=== PATIENT | male | born 1975 | race Caucasian/White ===

== ENCOUNTER 2019-03-13 23:45 | Observation (INO) | payer BC, SELFPAY ==
[2019-03-13 23:45] VITALS: BP 125/70; PULSE 81; RESP 24; O2SAT 100
--- NOTE | 2019-03-13 23:45 | W.ED.GENAD ---
Discharge Plan Disposition Patient Disposition: [facility] INPATIENT Condition: Stable Discharge Details Chief Complaint: Abd Prob Clinical Impression: Urolithiasis Primary Care Provider: Cass Lorenzo ED Provider: Leobardo Dexter Medical Decision Making This is a pleasant 43-year-old male with a past medical history of previous kidney stones who presents today for evaluation of right-sided flank pain. Symptoms have been present for the last 9 days, they have been mild to moderate with some achiness, the patient has had some mild vomiting and diarrhea, however over the last 5 hours the pain is become severely worse acutely, he has had associated hematuria. He states that this feels similar but much worse than his normal kidney stones. He denies any fever or chills. Physical exam demonstrates notable right-sided CVA flank and right lower quadrant abdominal tenderness. Normal cremasteric reflex, no significant testicular tenderness. No evidence of testicular torsion. Signs and symptoms are concerning for urolithiasis, however the history is atypical, and appendicitis is certainly on the differential as well the less likely. We will get a CT scan of the abdomen and pelvis for further assessment, treat his pain, rehydrate and reassess. [address] scan results have returned, and demonstrate evidence of a 3 mm calcification within the proximal right ureter with sequelae of obstructive uropathy. Laboratory work-up is relatively benign, no evidence of significant leukocytosis, renal function stable, urinalysis shows no evidence of significant UTI. Patient is given Toradol, repeat doses of Dilaudid, and pain is improved, but not controlled. We discussed discharge home versus observation for pain control, at this time the patient and his do not feel comfortable with going home with his pain. We will admit for continued pain management, IV hydration, and expectant discharge. He does have an established relationship with Dr. Medel already. I discussed the case with Dr. Miranda, he agrees with the assessment and plan. He has asked that I place admission orders and this will be placed. I have extensively reviewed the treatment plan with the patient. I have addressed all patient concerns at this time. I have also discussed the plan with the admitting physician and they agree with the current assessment and plan and have agreed to assume responsibility for the patient. All parties demonstrate verbal understanding and agreement with our assessment and plan at this time. FINDINGS: Lungs: Subpleural groundglass opacities in the bilateral posterior lung bases consistent with mild basilar atalectasis. Liver: Unremarkable. No mass. Gallbladder and bile ducts: Unremarkable. No calcified stones. No ductal dilation. Pancreas: Unremarkable. No ductal dilation. Spleen: Unremarkable. No splenomegaly. Adrenals: Unremarkable. No mass. Kidneys and ureters: There is a 0.8 cm hypodensity within the left kidney, too small to characterize, statistically most likely cyst. No imaging followup indicated. There is asymmetric enlargement of the right kidney with delayed nephrogram and perinephric stranding as well as mild right hydroureteronephrosis. There is punctate 3 mm calcification within the proximal right ureter, just distal to the UPJ. No left hydronephrosis, left ureter normal in course and caliber. Stomach and bowel: Unremarkable. No obstruction. No mucosal thickening. Appendix: Within normal limits. Intraperitoneal space: No free air. No significant fluid collection. Vasculature: Within normal limits. No abdominal aortic aneurysm. Lymph nodes: Few prominent mesenteric lymph nodes in the right upper quadrant, likely reactive. Otherwise no mesenteric or retroperitoneal adenopathy. Bladder: Unremarkable as visualized. Reproductive: Unremarkable as visualized. Bones/joints: Unremarkable. No acute fracture. Soft tissues: No focal abnormality. IMPRESSION: 1. 3 mm calcification within the proximal right ureter with sequela of obstructive uropathy as discussed. 2. Normal appendix. Dictated and Authenticated by: Trell Martinez MD. Ordering:COREEN Booth MD HPI General Date/Time Provider Initiated Documentation: 03/13/19 23:45. HPI Narrative: This is a pleasant 43-year-old male with a past medical history of kidney stones who presents today for evaluation of right-sided abdominal pain. Patient has had mild pain for the last 9 days primarily in the right flank, however over the last 5 hours it has become notably severe. He has had associated hematuria. Pain goes from his right flank all the way down to his right groin. He denies any chest pain fever or chills, but does admit to mild vomiting and diarrhea. He does have a history of kidney stones and states that this feels similar but significantly worse than before. He denies any aggravating or relieving factors. He denies any other complaints at this time. Related Data Allergies Allergy/AdvReac Type Severity Reaction Status Date / Time hay fever Allergy Mild Itching Uncoded 03/13/19 23:51 Review of Systems Review of Systems ROS Unobtainable: All systems reviewed & are unremarkable except as noted in HPI and below PFSH Social History Smoking/Tobacco Use Status: Never Drug use: Never Do you feel safe at home: Yes Do you feel safe in your relationship?: Yes Exam Narrative Exam Narrative: 1.Const: Well-nourished, Well-developed, appearing stated age 2.Eyes: PERRL, no conjunctival injection, and symmetrical lids. 3.ENT: Atraumatic external nose and ears. Moist MM. Neck: Symmetric, trachea midline, No thyromegaly. 4.CVS: +S1/S2, No murmurs or gallops. Peripheral pulses 2+ and equal in all extremities. Brisk capillary refill in all extremities. 5.RESP: Unlabored respiratory effort. Clear to auscultation bilaterally. No wheezes rales or rhonchi 6.GI: Soft, Nondistended, No hepatosplenomegaly. Mild to moderate right-sided flank and abdominal tenderness. Pain is present at McBurney's point. Negative Pratt sign. Mild to moderate CVA tenderness. Suprapubic tenderness is also present. exam demonstrates a circumcised penis, normal cremasteric reflex bilaterally. Minimal achiness over the right testicle, no masses. Negative obturator and psoas sign, negative heel strike test. 7.MSK: Normocephalic/Atraumatic, Extremities w/o deformity or ttp No cyanosis or clubbing, Normal movement of all extremities 8.Skin: Warm, Dry. No rashes or lesions. 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 Sensation grossly intact, no focal neurologic deficits. 10.Psych: (AAO) x3. Appropriate mood and affect
[2019-03-13 23:49] VITALS: BP 135/80; PULSE 76; RESP 24; TEMP 36.6; O2SAT 100
--- NOTE | 2019-03-13 23:49 | DI.CT_ITS ---
EXAM: CT ABDOMEN PELVIS W CLINICAL HISTORY: severe RLQ pain, hx kid stone. TECHNIQUE: Imaging Protocol: Axial computed tomography images with coronal and sagittal reformatted images were created and reviewed CONTRAST MATERIAL: Intravenous: Omnipaque 350 Contrast volume:100 mL contrast route:IV - Oral: No COMPARISON: ABD PELVIS WITH CONTRAST from 11/24/2014 FINDINGS: ABDOMEN: Lung Bases: Dependent atelectatic changes are seen in the lung bases bilaterally. Liver: Normal density. No measurable mass. The portal, superior mesenteric, and splenic veins are pat ent. Gallbladder and biliary tract: No radiodense calculus or dilation. Pancreas: Normal density, no abnormal calcifications or inflammatory process. Spleen: Normal. Kidneys: Normal size, contour and axis. There is a 3 mm stone at the right ureteropelvic junction cau sing mild right hydronephrosis. There is a 2 mm nonobstructing stone in the upper pole of the right kidney. There is a stable cyst on the left kidney. No masses seen. Adrenal glands: No masses seen. Abdominal Aorta: Abdominal portion non-dilated. No significant abdominal or pelvic adenopathy is pres ent. PELVIS: Bladder: Symmetric distention, no gross wall thickening. The reproductive organs are unremarkable as visualized. Bowel: No obstruction or bowel wall thickening. A normal appendix is present in the right lower quadr ant. Peritoneal cavity: No ascites, collection or mesenteric inflammatory response. Bones: Within normal limits. Impression: 3 mm calcification in the proximal right ureter causing mild hydronephrosis. DATA REPOSITORY: All CT scans at this facility are submitted to the National Radiology Data Registry (NRDR) Dose Index Registry (DIR) with the [employer] (A[employer]). RADIATION OPTIMIZATION: All CT scans at this facility use at least one of these dose optimization te chniques: automated exposure control; mA and/or kV adjustment per patient size (includes targeted exa ms where dose is matched to clinical indication); or iterative reconstruction.
[2019-03-13 23:58] LABS: Lactate 1.6 mmol/L (0.6-1.4)
[2019-03-13] MEDS: Normal Saline 1,000 ML 1000 ML IV (23:58)
[2019-03-14] VITALS (16 sets, daily range): BP systolic 116–152; BP diastolic 65–86; PULSE 71–84; RESP 16–20; TEMP 36.2; O2SAT 90–99
[2019-03-14 00:01] LABS: Absolute Basophil Count 0.02 k/cumm (0.0-0.2); Absolute Eosinophil Count 0.31 k/cumm (0.0-0.7); Absolute Lymphocyte Count 2.01 k/cumm (1.2-3.4); Absolute Monocyte Count 0.47 k/cumm (0.11-0.7); Absolute Neutrophil Count 3.92 k/cumm (1.2-6.7); Basophils % 0.3; Eosinophils % 4.6; HCT 37.1 % (40.0-50.0); Lymphocytes % 29.9; Mean Corpuscular Hemoglobin 31.8 pg (27.0-33.0); Mean Corpuscular Volume 90.7 fL (80-95); Mean Platelet Volume 8.9 fL (8.0-11.0); Neutrophils % 58.2; Platelet Count 257 x1000/uL (130-400); RBC 4.09 m/cumm (4.50-6.00); RBC Distribution Width 12.5 % (11.8-14.1); White Blood Cell Count 6.73 k/cumm (4.4-10.8)
[2019-03-14] MEDS: HYDROmorphone 2 MG/ML VIAL 1 MG IVP ×3 (00:02→02:35)
[2019-03-14] MEDS: Ondansetron 4 MG/2 ML VIAL IVP (00:02)
[2019-03-14] MEDS: Ketorolac 30 MG/ML VIAL IVP (00:03)
[2019-03-14 00:13] LABS: ALT 24 U/L (16-63); AST 17 U/L (15-37); Albumin 4.3 g/dL (3.4-5.0); Alkaline Phosphatase 96 U/L (46-116); Anion Gap 12.1 mmol/L (3-11); BUN 18 mg/dL (7-18); Bilirubin, Total 0.8 mg/dL (0.2-1.0); CO2 23.9 mmol/L (21.0-32.0); CREATININE 1.33 mg/dL (0.70-1.30); Calcium 8.6 mg/dL (8.5-10.1); Chloride 104 mmol/L (98-107); Estimated GFR 58.96 (mL/min/1.73m2); Glucose 111 mg/dL (70-100); Potassium 3.7 mmol/L (3.5-5.1); Sodium 140 mmol/L (136-145); Total Protein 7.1 g/dL (6.4-8.2)
[2019-03-14 00:14] LABS: PTT Activated 23.6 sec (21.0-31.4); Prothrombin Time 10.1 sec (9.3-11.0)
[2019-03-14] MEDS: Omnipaque 350 MG/ML 100 ML BTL IJ (00:50)
--- NOTE | 2019-03-14 01:02 | DI.VRAD_ITS ---
PROCEDURE INFORMATION: Exam: CT Abdomen and Pelvis With Contrast Exam date and time: 03/13/2019 12:14 AM Clinical history: 43 years old, male; Abdominal pain; Localized; Right lower quadrant (rlq); Patient HX: Severe rlq pain, HX kidney stones TECHNIQUE: Imaging protocol: Computed tomography of the abdomen and pelvis with intravenous contrast. COMPARISON: CT ABD PELVIS WITH CONTRAST 11/24/2014 2:49 AM FINDINGS: Lungs: Subpleural groundglass opacities in the bilateral posterior lung bases consistent with mild basilar atalectasis. Liver: Unremarkable. No mass. Gallbladder and bile ducts: Unremarkable. No calcified stones. No ductal dilation. Pancreas: Unremarkable. No ductal dilation. Spleen: Unremarkable. No splenomegaly. Adrenals: Unremarkable. No mass. Kidneys and ureters: There is a 0.8 cm hypodensity within the left kidney, too small to characterize, statistically most likely cyst. No imaging followup indicated. There is asymmetric enlargement of the right kidney with delayed nephrogram and perinephric stranding as well as mild right hydroureteronephrosis. There is punctate 3 mm calcification within the proximal right ureter, just distal to the UPJ. No left hydronephrosis, left ureter normal in course and caliber. Stomach and bowel: Unremarkable. No obstruction. No mucosal thickening. Appendix: Within normal limits. Intraperitoneal space: No free air. No significant fluid collection. Vasculature: Within normal limits. No abdominal aortic aneurysm. Lymph nodes: Few prominent mesenteric lymph nodes in the right upper quadrant, likely reactive. Otherwise no mesenteric or retroperitoneal adenopathy. Bladder: Unremarkable as visualized. Reproductive: Unremarkable as visualized. Bones/joints: Unremarkable. No acute fracture. Soft tissues: No focal abnormality. IMPRESSION: 1. 3 mm calcification within the proximal right ureter with sequela of obstructive uropathy as discussed. 2. Normal appendix. Dictated and Authenticated by: Trell Martinez MD. Ordering:COREEN Booth MD
[2019-03-14 01:07] LABS: Bilirubin Negative (Negative); Blood Large (Negative); Clarity Cloudy (Clear); Glucose Negative (Negative); Ketones Trace mg/dL (Negative); Leukocyte Esterase Negative (Negative); Nitrite Negative (Negative); Specific Gravity 1.015 (1.005-1.025); Urobilinogen 0.2 EU/dL (Up TO 0.2)
[2019-03-14 01:15] LABS: RBC >50 (0-2); WBC 0-2 HPF (0-5)
[2019-03-14 01:16] LABS: Bacteria Few HPF (Negative); C & S Indicated? No; Casts Negative LPF (Negative); Crystals Negative HPF (Negative); Epithelial Cells Few HPF (Negative); Mucus Negative (Negative)
[2019-03-14] MEDS: MORPHine 2 MG/ML SYR IVP (02:23)
[2019-03-14] MEDS: Normal Saline 1,000 ML 150 ML IV ×2 (02:25→07:40)
--- NOTE | 2019-03-14 02:41 | NUR.NOTE ---
Nursing Note:post medication administration o2 sat decreased to 88%, coygen started at 1l with saturation increasing to 97%.
--- NOTE | 2019-03-14 03:54 | HPE_ITS ---
Date of service: 03/14/19 Time of Service: 03:55 Assessment and Plan Assessment and plan (1) Kidney stone on right side: Status: Acute Assessment and plan: Right-sided kidney stone on CT scan with mild hydronephrosis, no fever. Pain still significant requiring parenteral opiates. No vomiting thus far. From a diagnostic standpoint monitor temperature curve and if fever develops he will need stenting. From a therapeutic standpoint continue IV hydration and parenteral medications. Hopefully the stone will pass spontaneously. Its proximal location reduces the chances somewhat. Size of the stone suggest expulsive therapy with tamsulosin not needed at this time. History of Present Illness History of Present Illness Chief Complaint: Colicky right-sided flank pain Narrative: 43-year-old generally healthy man with a history of urolithiasis in the past (requiring lithotripsy) presented to the emergency room with a dramatic increase in pain in the right flank area with some radiation towards the groin. For the past 9 days he has been dealing with left flank pain radiating into the left testicle. This is a familiar symptom for him having had kidney stones in the past including a stone that required lithotripsy (living in [place] at the time). He was unsure if this was due to a muscle strain from his weekly soccer participation or another kidney stone. The left flank pain passed spontaneously less than 24 hours ago when he noted some blood in his stool and there was sudden relief of pain. However, he then became aware of some right flank pain and was using ibuprofen or acetaminophen to try to manage the pain. Yesterday late afternoon the pain became much worse and he presented to the emergency room after trying to manage the pain at home for 5 to 6 hours. He had some nausea but no vomiting. He had a little bit of blood in his urine right before the left flank pain resolved but has not had gross hematuria since. No trouble with constipation. No fever or chills. He was not febrile on presentation. He had hematuria on microscopic exam in the ER and a renal colic CT showed mild hydronephrosis on the right with a 3 mm proximal ureteral stone, no obstruction or stone seen on the left. He required repeated doses of opiates for pain m anagement. He had better pain relief with morphine that he did with hydromorphone. He is being admitted for symptom control and hoped for spontaneous passage of the stone. He has a past history of multiple kidney stones. He had lithotripsy while he was living in [place]. He reports having had a 24-hour urine collection and apparently the results did not indicate the need for any ongoing medical treatment or dietary changes for stone prevention other than maintaining good hydration. There is no family history of recurrent kidney stones. His past medical history is also notable for vasectomy without consequence and arthroscopic surgery of his left knee. He otherwise enjoys good health and does not take any medications on a regular basis. Review of Systems Review of Systems ROS Unobtainable: All systems reviewed & are unremarkable except as noted in HPI and below PFSH Medical History (Updated 03/14/19 @ 03:58 by Newton Miranda MD) Hx of nephrolithotomy with removal of calculi (Acute) Surgical History (Updated 03/14/19 @ 04:11 by Newton Miranda MD) Hx of vasectomy (Acute) S/P arthroscopic surgery of left knee (Acute) Social History Smoking/Tobacco Use Status: Never Drug use: Never Do you feel safe at home: Yes Do you feel safe in your relationship?: Yes Meds Home Medications and Allergies Allergies Allergy/AdvReac Type Severity Reaction Status Date / Time hay fever Allergy Mild Itching Uncoded 03/13/19 23:51 Exam Narrative Exam Narrative: Presently comfortable after receiving 6 mg of morphine. Temperature 36.2 blood pressure 116/65 pulse rate in the 70s SaO2 97% on room air. Sclera clear. Pupils equal and reactive, extraocular movements are normal. No facial asymmetry. Pharynx clear. No JVD or cervical out not the. Lungs are clear. He has some mild tenderness to percussion on the right lower CVA area, not tender on the left. Regular heart rhythm without murmur S3 or S4. Abdomen muscular abdominal wall with normal to slightly decreased bowel sounds. No tenderness to palpation in the upper or lower quadrants of the abdomen. Negative psoas signs bilaterally. Good pulses in the feet. He has symmetric movement of all extremities. Sits up unassisted. Oriented x4. Results CT scan abdomen and pelvis with contrast showing delayed nephrogram on the right, mild right hydroureteronephrosis and a 3 mm calcification in the proximal right ureter just distal to the UPJ. Labs Result diagrams: 03/13/19 23:53 03/13/19 23:53 Labs: Laboratory Results - last 24 hr 03/13/19 03/13/19 03/13/19 23:53 23:53 23:53 WBC 6.73 RBC 4.09 L Hgb 13.0 L Hct 37.1 L MCV 90.7 MCH 31.8 MCHC 35.0 RDW 12.5 Plt Count 257 MPV 8.9 Immature Gran % 0.0 Neutrophils % 58.2 Lymphocytes % 29.9 Monocytes % 7.0 Eosinophils % 4.6 Basophils % 0.3 Absolute Neutrophils 3.92 Absolute Lymphocytes 2.01 Absolute Monocytes 0.47 Absolute Eosinophils 0.31 Absolute Basophils 0.02 PT INR APTT Sodium 140 Potassium 3.7 Chloride 104 Carbon Dioxide 23.9 Anion Gap 12.1 H BUN 18 Creatinine 1.33 H Estimated GFR/1.73 m2 58.96 Glucose 111 H Lactate 1.6 H Calcium 8.6 Total Bilirubin 0.8 AST 17 ALT 24 Alkaline Phosphatase 96 Total Protein 7.1 Albumin 4.3 Urine Color Urine Clarity Urine pH Ur Specific [place] Urine Protein Urine Ketones Urine Blood Urine Nitrite Urine Bilirubin Urine Urobilinogen Ur Leukocyte Esterase Urine RBC Urine WBC Ur Epithelial Cells Urine Crystals Urine Bacteria Urine Casts Urine Mucus Ur Culture Indicated? Urine Glucose 03/13/19 03/14/19 23:53 00:50 WBC RBC Hgb Hct MCV MCH MCHC RDW Plt Count MPV Immature Gran % Neutrophils % Lymphocytes % Monocytes % Eosinophils % Basophils % Absolute Neutrophils Absolute Lymphocytes Absolute Monocytes Absolute Eosinophils Absolute Basophils PT 10.1 INR 1.0 APTT 23.6 Sodium Potassium Chloride Carbon Dioxide Anion Gap BUN Creatinine Estimated GFR/1.73 m2 Glucose Lactate Calcium Total Bilirubin AST ALT Alkaline Phosphatase Total Protein Albumin Urine Color Yellow Urine Clarity Cloudy Urine pH 6.0 Ur Specific [place] 1.015 Urine Protein 30 H Urine Ketones Trace H Urine Blood Large H Urine Nitrite Negative Urine Bilirubin Negative Urine Urobilinogen 0.2 Ur Leukocyte Esterase Negative Urine RBC >50 H Urine WBC 0-2 Ur Epithelial Cells Few Urine Crystals Negative Urine Bacteria Few Urine Casts Negative Urine Mucus Negative Ur Culture Indicated? No Urine Glucose Negative Last Vital Signs Temp 36.2 C L 03/14/19 03:08 Pulse 83 03/14/19 03:08 Resp 20 03/14/19 03:08 BP 152/86 H 03/14/19 03:08 Pulse Ox 95 03/14/19 03:08
[2019-03-14] MEDS: MORPHine 10 MG/ML VIAL 6 MG IVP (07:18)
[2019-03-14] MEDS: Normal Saline Flush 10 ML SYR IVP (07:19)
--- NOTE | 2019-03-14 07:42 | PHARADMIT ---
Admission Pharmacy Clinical Review UROLITHIASIS Code Status Full Code Current Weight Wgt-86.2 kg Renally Cleared and Narrow Therapeutic Index Meds CrCl~74 mL/min Meds-OK QTc Value / Action Taken NA BP Control, Fever BP-116/65 Tmax- 36.6C Electrolytes reviewed Na-140 K+3.7 DVT Prophylaxis none Opiate Usage / Scheduled Bowel Regimen Ordered Yes No (NPO) Plt/SCr for Heparin / Enoxaparin Plts-257 SCr-1.33 INR for Warfarin inr-1.0 H/H stable, WBC/Bands H&H- 13.0/37.1 WBC- 6.73 Antibiotic appropriateness none Cultures and Sensitivities none Surgical ABX d/c within 24 hr NA DM control / Insulin Dosing BG-111 Heart Failure (Check EF%) (AUDELIA's, B-Block, Diuretics) none IV to PO Switch No Home Meds Reviewed Yes Home Meds Not Ordered Ibuprofen, Tramadol Comments
[2019-03-14 07:56] LABS: Anion Gap 8.4 mmol/L (3-11); BUN 18 mg/dL (7-18); CO2 25.6 mmol/L (21.0-32.0); CREATININE 1.36 mg/dL (0.70-1.30); Calcium 8.1 mg/dL (8.5-10.1); Chloride 105 mmol/L (98-107); Estimated GFR 57.47 (mL/min/1.73m2); Glucose 111 mg/dL (70-100); Potassium 4.4 mmol/L (3.5-5.1); Sodium 139 mmol/L (136-145)
[2019-03-14] MEDS: Ibuprofen 600 MG TAB PO (11:07)
--- NOTE | 2019-03-14 11:44 | DSE_ITS ---
Date of service: 03/14/19 Time of Service: 11:44 DS: Diagnosis Discharge Diagnosis (1) Kidney stone on right side: Status: Acute Discharge Plan Disposition Patient Disposition: HOME Condition: Stable Discharge Details Chief Complaint: Abd Prob Clinical Impression: Urolithiasis Reason For Visit: UROLITHIASIS Admit Date/Time: 03/14/19 01:58 Admit Provider: Newton Miranda Attending Provider: Newton Miranda Primary Care Provider: Cass Lorenzo ED Provider: Leobardo Dexter Hospital Course Hospital Course: Chief Complaint: Flank Pain HPI: 43-year-old man with a prior history of multiple kidney stones, admitted from [facility] Emergency Department on 03/14 with a diagnosis of right sided kidney stone. Mr. Hoang has a past Medical History significant for nephrolithiasis, some requiring Lithotripsy. He presented to the ED with reported onset of significant right flank pain with radiation to his groin. He reportedly had left flank pain radiating to his left inguinal region over the prior 10 days, spontaneously resolved a day prior to his admission, then with onset of the right flank pain that intensified significantly prior to his presentation to the ED. The patient was found to be afebrile, without leukocytosis, and baseline of 1.3. Urinalysis was significant for blood, and CT showed evidence of a 3mm proximal right ureteral calculus causing mild hydronephrosis. He was admitted for hydration and pain control. This morning Mr. Hoang resports vast improvement in his pain, with progression from discomfort from right flank to RLQ indicating likely stone advancement. Given the size expect passage without difficulty fairly soon. Patient requesting discharge - he will be prescribed moderate dose Hydrocodone/Acetaminophen, with recommendations for continuation of Ibuprofen short-term and continued hydration. Given the number of prior stones will also recommend Urology follow- up after discharge. Home Meds and New Rx's Prescriptions: New hydrocodone-acetaminophen 7.5-325 mg Tablet 1 tab PO Q4H PRN PRNQty: 20 RF: 0 Discharge Instructions Activity:: No Strenuous Activity Equipment/Supplies:: No Equipment Needed Diet:: As Tolerated Discharge Orders Discharge Orders: Discharge Order (Routine); Ordered 03/14/19 Ordered By: Demarco Dean DS: Summary Status at Discharge Functional status at discharge: independent ambulation Overall status at discharge: patient is back to baseline Mental Status: mental status grossly normal Speech and Movement: speech and movement normal Mood: congruent mood Affect: normal affect Exam Psych Mental Status: mental status grossly normal Speech and Movement: speech and movement normal Mood: congruent mood Affect: normal affect DS: Data Vitals/I&O Vitals and I&O: Vital Signs Temperature 36.2 C L 03/14/19 08:26 Temperature Source Tympanic 03/14/19 08:26 Pulse 71 03/14/19 08:26 Pulse Rhythm Regular 03/14/19 07:20 Respiratory Rate 17 03/14/19 08:26 Respiratory Effort Non-Labored 03/14/19 07:20 Respiratory Depth Normal 03/14/19 07:20 Respiratory Pattern Normal 03/14/19 07:20 Blood Pressure 132/82 03/14/19 08:26 Blood Pressure Position Supine 03/13/19 23:49 Pulse Oximetry 99 03/14/19 08:26 Oxygen Delivery Method Room Air 03/14/19 08:26 Oxygen Flow Rate 0 03/14/19 08:26 Pain Level 7 03/14/19 11:07 Intake & Output 03/13/19 03/13/19 03/14/19 11:59 23:59 11:59 Intake Total 787.5 / 787.5 Output Total 1850 / 1850 Balance -1062.5 / -1062.5 Weight 86.183 kg 86.183 kg Intake: IV 787.5 / 787.5 Output: Urine 1850 / 1850 Other: Urine Color Pale Urine Appearance Clear Urine Odor None Strain Urine Result Negative-No Stones/Gravel Comment no stones present. urine strained. Voiding Methods Urinal Data Completed and Pending Completed studies during hospitalization [Text1]: Exam(s) 03/[address]:CT abdomen & pelvis w EXAM: CT ABDOMEN PELVIS W CLINICAL HISTORY: severe RLQ pain, hx kid stone. COMPARISON: ABD PELVIS WITH CONTRAST from 11/24/2014 FINDINGS: ABDOMEN: Lung Bases: Dependent atelectatic changes are seen in the lung bases bilaterally. Liver: Normal density. No measurable mass. The portal, superior mesenteric, and splenic veins are patent. Gallbladder and biliary tract: No radiodense calculus or dilation. Pancreas: Normal density, no abnormal calcifications or inflammatory process. Spleen: Normal. Kidneys: Normal size, contour and axis. There is a 3 mm stone at the right ureteropelvic junction causing mild right hydronephrosis. There is a 2 mm nonobstructing stone in the upper pole of the right kidney. There is a stable cyst on the left kidney. No masses seen. Adrenal glands: No masses seen. Abdominal Aorta: Abdominal portion non-dilated. No significant abdominal or pelvic adenopathy is present. PELVIS: Bladder: Symmetric distention, no gross wall thickening. The reproductive organs are unremarkable as visualized. Bowel: No obstruction or bowel wall thickening. A normal appendix is present in the right lower quadrant. Peritoneal cavity: No ascites, collection or mesenteric inflammatory response. Bones: Within normal limits. Impression: 3 mm calcification in the proximal right ureter causing mild hydronephrosis. Labs on day of discharge: Labs from last 24 hours 03/14/19 03/14/19 03/13/19 07:40 00:50 23:53 WBC RBC Hgb Hct MCV MCH MCHC RDW Plt Count MPV Immature Gran % Neutrophils % Lymphocytes % Monocytes % Eosinophils % Basophils % Absolute Neutrophils Absolute Lymphocytes Absolute Monocytes Absolute Eosinophils Absolute Basophils PT 10.1 INR 1.0 APTT 23.6 Sodium 139 Potassium 4.4 Chloride 105 Carbon Dioxide 25.6 Anion Gap 8.4 BUN 18 Creatinine 1.36 H Estimated GFR/1.73 m2 57.47 Glucose 111 H Lactate Calcium 8.1 L Total Bilirubin AST ALT Alkaline Phosphatase Total Protein Albumin Urine Color Yellow Urine Clarity Cloudy Urine pH 6.0 Ur Specific [place] 1.015 Urine Protein 30 H Urine Ketones Trace H Urine Blood Large H Urine Nitrite Negative Urine Bilirubin Negative Urine Urobilinogen 0.2 Ur Leukocyte Esterase Negative Urine RBC >50 H Urine WBC 0-2 Ur Epithelial Cells Few Urine Crystals Negative Urine Bacteria Few Urine Casts Negative Urine Mucus Negative Ur Culture Indicated? No Urine Glucose Negative 03/13/19 03/13/19 03/13/19 23:53 23:53 23:53 WBC 6.73 RBC 4.09 L Hgb 13.0 L Hct 37.1 L MCV 90.7 MCH 31.8 MCHC 35.0 RDW 12.5 Plt Count 257 MPV 8.9 Immature Gran % 0.0 Neutrophils % 58.2 Lymphocytes % 29.9 Monocytes % 7.0 Eosinophils % 4.6 Basophils % 0.3 Absolute Neutrophils 3.92 Absolute Lymphocytes 2.01 Absolute Monocytes 0.47 Absolute Eosinophils 0.31 Absolute Basophils 0.02 PT INR APTT Sodium 140 Potassium 3.7 Chloride 104 Carbon Dioxide 23.9 Anion Gap 12.1 H BUN 18 Creatinine 1.33 H Estimated GFR/1.73 m2 58.96 Glucose 111 H Lactate 1.6 H Calcium 8.6 Total Bilirubin 0.8 AST 17 ALT 24 Alkaline Phosphatase 96 Total Protein 7.1 Albumin 4.3 Urine Color Urine Clarity Urine pH Ur Specific [place] Urine Protein Urine Ketones Urine Blood Urine Nitrite Urine Bilirubin Urine Urobilinogen Ur Leukocyte Esterase Urine RBC Urine WBC Ur Epithelial Cells Urine Crystals Urine Bacteria Urine Casts Urine Mucus Ur Culture Indicated? Urine Glucose PFSH Medical History Hx of nephrolithotomy with removal of calculi (Acute) Surgical History Hx of vasectomy (Acute) S/P arthroscopic surgery of left knee (Acute) Social History Smoking/Tobacco Use Status: Never Drug use: Never Do you feel safe at home: Yes Do you feel safe in your relationship?: Yes
== END 2019-03-14 13:10 | disposition home or self-care (01) ==
LOC: ER 03-14 02:38 → MS 03-14 02:53
PROVIDERS: Admitting Provider Internal Medicine; Emergency Provider Student in an Organized Health Care Education/Training Program; PCP Nurse Practitioner Family; Visit Provider Internal Medicine
DX: N13.2 Hydronephrosis with renal and ureteral calculous obstruction; Z87.442 Personal history of urinary calculi
CPT/HCPCS: 36415; 80048; 80053; 96361; 96374; 96375; 96376; 99217; 99219; 99285; 74177; 81003; 81015; 83605; 85025; 85610; 85730; 99236; 99284; G0378; J1885; J2270; J2405; J3490

== ENCOUNTER 2019-12-27 12:49 | Outpatient (CLI) | payer BC, SELFPAY ==
[2020-01-02 12:22] LABS: SARS-CoV-2 RNA Undetected (Undetected); SARS-CoV-2 Specimen Source Nasopharynx
== END 2019-12-27 13:09 ==
PROVIDERS: PCP Nurse Practitioner Family; Visit Provider Registered Nurse
DX: Z03.818 Encounter for observation for suspected exposure to other biological agents ruled out (principal)
CPT/HCPCS: U0003

== ENCOUNTER 2020-07-24 20:54 | Outpatient (REF) | payer OTHER, SELFPAY ==
[2020-07-26 14:02] LABS: COVID-19 RT-PCR UVMMC Result Negative (Negative)
== END 2020-07-24 20:55 | disposition home or self-care (01) ==
LOC: NCHCN 20:54
PROVIDERS: PCP Nurse Practitioner Family; Visit Provider Nurse Practitioner Family
DX: J32.9 Chronic sinusitis, unspecified (principal); Z20.822 Contact with and (suspected) exposure to COVID-19
CPT/HCPCS: U0003

== ENCOUNTER 2021-05-31 09:31 | Outpatient (CLI) | payer OTHER, SELFPAY ==
--- NOTE | 2021-05-31 09:15 | DI.RAD_ITS ---
Exam(s) XR STANDING ALIGNMENT EXAM: XR STANDING ALIGNMENT CLINICAL HISTORY: knee pain. TECHNIQUE: 2D digital imaging was performed. COMPARISON: DX XR RIGHT KNEE 3VIEWS from 02/10/2018 DX XR RIGHT KNEE 3VIEWS from 02/10/2018 FINDINGS: There is advanced osteoarthritic degenerative change in both knees. Moderate-advanced narrowing of t he medial and lateral compartments of the left knee noted and lateral compartment of the right knee w ith milder narrowing of the medial compartment of the right knee. A corticated ossified density seen in the soft tissues just medial to the medial femoral condyle of the right knee, possibly from prior MCL injury. Prominent lateral marginal osteophytes seen off the lateral compartment of the right kn ee. Smaller osteophytes on the left side. Both hip joints appear unremarkable. Sacroiliac joints unremarkable. Ankles appear unremarkable. N o osseous lesions. IMPRESSION: Degenerative changes both knees. Hips appear unremarkable. DATA REPOSITORY: RADIATION DOSE DELIVERED:
--- NOTE | 2021-05-31 09:15 | DI.RAD_ITS ---
Exam(s) XR KNEE LT 1V EXAM: XR KNEE LT 1V CLINICAL HISTORY: knee pain. TECHNIQUE: 2D digital imaging was performed. COMPARISON: DX XR RIGHT KNEE 3VIEWS from 02/10/2018 DX XR RIGHT KNEE 3VIEWS from 02/10/2018 FINDINGS: Single lateral of the left knee reveals no obvious fractures but severe tricompartmental osteoarthrit ic degenerative changes. On the lateral view there is a large bony excrescence off the posterosuperi or aspect of the patella, this extending cephalad for distance of 2.8 cm and impinging upon the supra patellar bursa. Similar finding is not seen on the opposite side. IMPRESSION: DATA REPOSITORY: RADIATION DOSE DELIVERED:
--- NOTE | 2021-05-31 09:36 | DI.RAD_ITS ---
Exam(s) XR KNEE RT 1V EXAM: XR KNEE RT 1V CLINICAL HISTORY: knee pain. TECHNIQUE: 2D digital imaging was performed. COMPARISON: DX XR RIGHT KNEE 3VIEWS from 02/10/2018 DX XR RIGHT KNEE 3VIEWS from 02/10/2018 FINDINGS: Single lateral view of the right knee compared to January 2018 Again noted are degenerative changes. On this lateral view there is also significant degenerative ch zeny in the patellofemoral compartment evident, this in addition to the lateral compartment degenerat lawrence changes and less severe medial compartment degenerative changes. There is no prominent joint eff usion evident. IMPRESSION: DATA REPOSITORY: RADIATION DOSE DELIVERED:
== END 2021-05-31 09:32 | disposition home or self-care (01) ==
LOC: DIORS 09:32
PROVIDERS: PCP Registered Nurse; Referring Provider Registered Nurse; Visit Provider Physician Assistant
DX: M25.561 Pain in right knee (principal); M25.562 Pain in left knee; M17.0 Bilateral primary osteoarthritis of knee
CPT/HCPCS: 73560; 77073

== ENCOUNTER 2025-04-18 11:27 | Outpatient (CLI) | payer BC, SELFPAY ==
--- NOTE | 2025-04-18 08:02 | DI.RAD_ITS ---
Exam(s) XR STANDING ALIGNMENT EXAM: XR STANDING ALIGNMENT CLINICAL HISTORY: R TKR Planning. TECHNIQUE: 2D digital imaging was performed. Four images were obtained. COMPARISON: CR XR STANDING ALIGNMENT from 05/31/2021 CR XR KNEE RT 1V from 05/31/2021 CR XR KNEE LT 1V from 05/31/2021 CR XR Knee 3 Views Right from 11/18/2023 FINDINGS: BONES: The hips are well maintained. In the right knee, there are marked degenerative changes characterized by joint space narrowing and osteophytes. The findings are most marked in the lateral femoral tibial joint. In the left knee, there are marked degenerative changes characterized by joint space narrowing and osteophytes. The findings are most marked in the lateral femoral tibial joint. There are large enthesophytes at the superior patella bilaterally. The ankles are well maintained.There is no significant leg length discrepancy. SOFT TISSUE: Normal. IMPRESSION: Marked osteoarthritis of the knees bilaterally. DATA REPOSITORY: RADIATION DOSE DELIVERED:
== END 2025-04-18 11:28 | disposition home or self-care (01) ==
LOC: DIORS 11:27
PROVIDERS: PCP Registered Nurse; Visit Provider Physician Assistant
DX: M17.11 Unilateral primary osteoarthritis, right knee (principal); M17.12 Unilateral primary osteoarthritis, left knee
CPT/HCPCS: 77073

== ENCOUNTER 2025-04-27 06:06 | Day surgery (SDC) | payer BC, SELFPAY ==
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
[2025-04-27] VITALS (29 sets, daily range): BP systolic 103–138; BP diastolic 67–87; PULSE 64–78; RESP 11–23; TEMP 36.3–36.6; O2SAT 97–100; BMI 30.8
[2025-04-27] MEDS: Celecoxib 200 MG CAP 400 MG PO (06:20)
[2025-04-27] MEDS: Acetaminophen 500 MG TAB 1000 MG PO (06:20)
[2025-04-27] MEDS: Gabapentin 300 MG CAP PO (06:20)
[2025-04-27] MEDS: Lactated Ringers 1,000 ML 80 ML IV (06:56)
--- NOTE | 2025-04-27 07:13 | PDOC.DSDIS_ITS ---
Date of service: 04/27/25 Discharge Plan Disposition Patient Disposition: Home Condition: Good Discharge Details Reason For Visit: R TKR Attending Provider: Kartik Suarez Primary Care Provider: Isha Serna Home Meds and New Rx's Prescriptions: New acetaminophen 500 mg tablet 1,000 mg PO TID Qty: 90 3RF aspirin 81 mg tablet,delayed release (DR/EC) 81 mg PO BID Qty: 60 0RF celecoxib 200 mg capsule 200 mg PO BID Qty: 60 0RF dexamethasone 4 mg tablet 4 mg PO DAILY Qty: 2 0RF docusate sodium 100 mg capsule 100 mg PO BID PRNQty: 28 0RF pantoprazole 40 mg tablet,delayed release (DR/EC) 40 mg PO DAILY Qty: 14 0RF gabapentin 300 mg capsule 300 mg PO QHS Qty: 14 0RF oxycodone 5 mg tablet 5 mg PO Q4H PRNQty: 18 0RF Continued mometasone 50 mcg/actuation spray,non-aerosol 2 spray intranasal DAILY Qty: 17 12RF Rx Instructions: administer into each nostril cetirizine 10 mg tablet 10 mg PO DAILY PRN azelastine [Astepro Allergy] 205.5 mcg (0.15 %) spray,non-aerosol 2 spray intranasal BID Rx Instructions: administer into each nostril Discontinued acetaminophen 500 mg capsule 500 mg PO Q6H PRN Discharge Instructions Additional Instructions: Total Knee Discharge Instructions Activity: The most important activity is to walk and to work on gentle motion (both flexion and extension). You should try to take short walks a few times a day. It is important that when resting you work on keeping the knee straight. Avoid putting a pillow behind the knee as this will encourage flexion. Work on range of motion exercises as provided by Physical Therapy. - Start outpatient physical therapy within 2 weeks. - You should wear the VIVEK hose on both legs for 2 weeks. You may remove these at night. You may also use any compression sock in place of the VIVEK hose. - Utilize [employer] to review exercises, see videos on exercises and obtain basic information pertaining to your surgery and your recovery. Dressing: Remove the Eric wrap by 2 days after your surgery and put on the VIVEK stocking given to you from the hospital. Keep the surgical dressing (underneath the ERIC wrap) in place for at least one week. After the first week it may be removed and replaced with light gauze and tape or nothing. The wound and dressing may get wet after 3 days but avoid soaking the dressing or otherwise it will need to be changed. Many people prefer covering the dressing with cling wrap (saran wrap) to minimize it from getting soaked. If it gets wet, just pat dry. If it starts to peel off then it will need to be changed. Medications: - You should take Tylenol and anti-inflammatory Celebrex as your primary pain control medications. If the Celebrex is too expensive or not covered, please call the office for another alternative (Advil/Ibuprofen or Naproxen/Aleve) - You have been prescribed a stronger pain medication Oxycodone for breakthrough pain, take as needed as prescribed. - You have also been prescribed a stomach acid reduction agent Pantoprozole to help reduce stomach acid and reflux. - You have been prescribed Gabapentin to take at night for restlessness and nerve pain. - You will be taking Aspirin 81mg twice a day for DVT prevention unless instructed otherwise. - You have also been prescribed Decadron to take to control post-operative nausea and pain. You will start this tomorrow. - If you have constipation you should take Colace or Miralax (both [id number]). It takes most people 3-4 days to have a bowel movement. Follow-up: 2 weeks If you have any acute concerns or questions, please do not hesitate to contact the office at [phone]. You may contact Dr. Suarez with any questions after hours through the hospital at [phone] or on his cell phone at [phone]. Stand Alone Forms: Anesthesia Discharge Inst., Anes.Nerve Block Instructions, [facility] ([facility]), Portal Information Referrals: Kartik Suarez MD [ [facility] STAFF PHYSICIAN, Orthopaedic Surgical] - 05/09/25 10:45 am Equipment/Supplies: Walker Activity:: Activity as Tolerated Shower/Bathe:: 72 hours Diet:: As Tolerated Discharge Orders Discharge Orders: Discharge Order (Routine); Ordered 04/27/25 Ordered By: Manish Nieves DS: Diagnosis Discharge Diagnosis (1) Degenerative joint disease of right knee: Status: Chronic
[2025-04-27] MEDS: ceFAZolin 2 GM/50 ML BAG IVPB (07:42)
[2025-04-27] MEDS: TRANEXAMIC ACID/SOD. CHL. 1,000 MG/100 ML BAG 600 MG IVPB (07:52)
--- NOTE | 2025-04-27 08:21 | W.ANESNERVE ---
Nerve Block Single Injection Procedure Date and Time Date Performed: 04/27/25 Procedure Start: 07:20 Location Where Procedure Performed Procedure Location: Day Surgery Unit Reason Performed: Postoperative Analgesia Requesting Provider: Kartik Suarez Timeout Performed Timeout Performed: Yes Monitoring Used ECG, Blood Pressure, SpO2 and See EMR for corresponding vital signs Sterility Sterility: Hand Hygiene, Surgical Cap, Surgical Mask, Sterile Gloves and Chlorhexidine Sedation Given During Procedure Sedation Given (Indicate Dose Given): Versed IV Dose:: 2mg Patient Mental Status Patient Mental Status: Sedate with meaningful communication Nerve Block 1st Nerve Block: Laterality: Right Block Type: Adductor Canal Ultrasound Image Saved?: Yes Needle / Catheter Used: 100mm SonoPlex II Local Anesthetic Bolus (Indicate Dose Given): Lidocaine used for local infiltration of skin, Bupivacaine 0.25% Dose:: 8ml and Exparel Dose:: 7ml Additives (Indicate Dose Given): None Ultrasound: Sterile probe cover and gel used Nerve Stimulator: Supplement to Ultrasound use and No twitch or parasthesia noted < 0.5 mA (less than 0.8 mA) Paresthesia: None Procedure Tolerated: No Complications Procedure Outcome: Successful Procedure Comment: Recommend additional sedation in the future Performed By: Coleen Powell Other (not listed above): RENETTA Supervised By: Barry Moreno
[2025-04-27] MEDS: EPINEPHrine 1 MG/ML AMP pres-free (09:30)
[2025-04-27] MEDS: Ketorolac 30 MG/ML VIAL (09:30)
[2025-04-27] MEDS: ROPIvacaine 0.2% 200 MG/100 ML BAG (09:30)
--- NOTE | 2025-04-27 10:03 | W.PM.OP ---
Operative Note Operative Note PRE-OP DIAGNOSIS: Right Knee Hypertrophic Osteoarthritis POST-OP DIAGNOSIS: same PROCEDURE: Right Total Knee Replacement with Intraoperative Navigation SURGEON: Kartik Suarez PAPER COLORER: Kenyon Nieves ANESTHESIA TYPE: Spinal Refer to Anesthesia Record ESTIMATED BLOOD LOSS: 200 PATHOLOGY: none sent TOURNIQUET TIME: 0 COMPLICATIONS: None Patient was transported to: PACU Patient's condition: stable Implants: 1. Depuy Attune Cementless Cruciate Retaining Femoral Component, Size 9 2. Depuy Attune Cementless Fixed Bearing Tibial Component, Size 9 3. Depuy Attune 9x6mm CR/FB Poly 4. Depuy Attune Patellar Component, Size 41 mm Indications: I have seen Danie in clinic for symptoms of RIGHT knee arthritis, confirmed with radiographic findings. Danie has exhausted nonoperative methods and was having significant limitations in daily function and desired better function and less pain. I discussed the technical details of a knee replacement. I explained the risks of the procedure to include, but not limited to, bleeding, infection, pain, stiffness, fracture, damage to nerves and vessels, damage to muscles and tendons, loosening, need for repeat procedure, blood clot and cardiopulmonary demise. Despite these risks, [NAME] elected to proceed. Findings: There was significant signs of arthritis throughout the knee with large impinging bone throughout, particularly posteriorly. Procedure Description: Danie was greeted in the preoperative holding area where the correct side was identified and marked. The consent was reviewed with the patient and signed. The history and physical was updated. All questions were answered. Preoperative mediacations were administered: Acetaminophen 1000mg, Celebrex 400mg, and Gabapentin 300mg. An adductor canal block was then administered by the anesthesia team in the D[facility]. He was taken back to the operating room. A spinal anesthestic was then administered. The patient was placed into the supine position on the operating room table. Posts were placed for positioning during the procedure. All bony prominences were well padded. Prophylactic antibiotics in the form of Cefazolin were administered. 1g of Tranxemic Acid was given intravenously within 30 minutes of incision. The right leg was then prepped with Chloraprep and draped in a standard fashion with impervious stockinette. A second prep with Chloraprep was performed prior to application of Iodine impregnated skin protection. A timeout to confirm correct identity, side and site, procedure, allergies, anesthesia, and medical concerns was performed. With the knee in some flexion, a midline incision was made overlying the knee. Full thickness skin flaps were raised once the extensor mechanism was encountered. These were raised medially and laterally. Any bleeding was controlled with electrocautery. Once the extensor mechanism was fully exposed, a medial parapatellar arthrotomy was performed in a flexed position. All bleeding from the arthrotomy and the geniculate arteries was coagulated. A medial subperiosteal peel was performed with electrocautery to the midcoronal plane. Due to the significant varus deformity the entire medial tibial plateau was exposed. The fat pad was removed while keeping the patellar tendon protected. The anterior distal femur synovium was removed for later visualization. The ACL and PCL were resected and the anterior horn of the lateral meniscus was transected. The knee was then flexed with the patella everted. Large osteophytes from the tibia were removed. Large osteophytes from the femur were removed. Flexion was challenging given the amount of bone spurs present posteriorly. A curved ostium was used to resect posterior osteophytes to allow initial visualization as well as remove osteophytes within the notch. A single starting pin was then placed 1cm anterior to the PCL insertion and the notch in the direction of the femoral head. The OrthoAlign device was applied over the pin. It was oriented to be in line with the epicondylar axis and the trochlear groove. It was then pinned into place. The navigation computer was then turned on and calibrated. The distal femur cut was set at 0.5 degrees valgus and 3.5 degrees flexion. The distal femur cutting guide then was positioned for a 9mm cut. The distal femur was cut with an oscillating saw while protecting the soft tissues. The tibia was then addressed. The OrthoAlign device was placed over the tibial tubercle and medial tibia and secured into position. Once again, OrthoAlign was calibrated and then set for a 2 degree varus cut and 5 degrees of posterior slope. With this locked into position, the cut thickness stylus was used to assess cut thickness. The lateral side, most involved side, was set for a 4mm cut. This was then held in position and pinned into place with 2 additional pins and a cross pin for stability. The medial and lateral collateral ligaments were protected and the cut was performed. With this completed, it was assessed and noted to be of appropriate dimensions. The guide and OrthoAlign was removed. A spacer block was inserted and the knee was brought into extension to ensure enough space was present. . The Orthoalign gap balancing device was then placed in extension. This was used to ensure that the ligaments were properly balanced with up to 2 to 3 mm laxity laterally compared medially. The extension gap was measured as 18mm. The knee was then brought into 90 degrees of flexion and the ligament senior manufacturing test engineer was once again placed. Under the same amount of force the flexion gap was measured. The Attune specific jig was placed and the flexion gap was made to match the extension gap. The femur was then sized as a size 9. The 4-in-1 cutting guide was the placed. An elbert wing was used to confirm appropriate position of the anterior cut to avoid notching. This cutting guide was ensured to be flush on the cut surface and then pinned into place with headed pins. While protecting the soft tissues, quad tendon, and collateral ligaments, the anterior and posterior cuts were performed with a saw. The central two pins were removed and the posterior and anterior chamfers were cut next. The notch-cutting guide was placed. This was pinned to lateralize the femoral component as much as possible while keeping it flush on the cut surface. This was then pinned into position. A saw was used to make the notch cut. The medial and lateral menisci were removed. Further attention was paid to the large amount of remnant posterior osteophytes. These were further resected with a curved osteotome. Then, a trial femoral component was then inserted, impacted down to the cut surfaces, and the lug holes were drilled. A provisional trial tibial component was placed and the knee was brought through range of motion. There was noted to be excellent extension and flexion. There was no significant instability. The patella was tracking without thumbs. A size 6mm polyethylene component provided the best range of motion and stability with less than 2mm gapping with medial and lateral stress and full extension without significant hyperextension. The tibial cut surface was fully exposed. The tibia was then sized as a 9. The tibia had been previously marked during trialing to correspond to the center of the tibial component to help with rotation. The trial was aligned to this kenyon, approximately rotated to the medial 1/3rd of the tibial tubercle. The trial was pinned into place. The tibia was prepared with a reamer and a keel punch and lug holes. The knee was then brought into extension and the patella was measured as 29mm. Using the patellar clamp and cut guide, this was resected to a flat surface with at least 13mm of thickness remaining. The size 41mm patella fit the best. This was oriented and then clamped into position. The lugs were drilled. The trial components were removed. The final components were opened on the back table. The periosteal and capsular tissues, especially posteriorly, around the knee were then systematically injected with a periarticular cocktail consisting of 246mg of Ropivacaine, 0.5mg of Epinephrine, 0.08mg of Clonidine, and 30mg of Ketorolac, diluted to 100cc. On the back table, with the implants opened, the cement was mixed. One batch of high viscosity cement was prepared with vacuum assistance. After the cement was ready a small amount was placed on the cut surface of the patella and the patellar button was clamped into position and held. Then, the knee components were placed. Starting with the tibial component, the tibia was subluxed anteriorly and the lug holes of the component were lined up. The tibia was then impacted with an impactor and mallet until the tibial component was in contact with the tibia. Then, the femoral component was inserted. The lug holes were aligned and the component was impacted into position. The final polyethylene component was inserted. The knee was irrigated with Surgiphor Betadine solution. This was allowed to sit in the knee for 3 minutes and then it was thoroughly irrigated out with saline. After the cement had finally cured, approximately 15min, the clamp was removed from the patella. The knee was then taken through range of motion. The patella was tracking with a no-thumbs technique. A complete synovectomy of the patella was performed. Any prominence to the lateral facet was resected with a rongeur. The capsule was then reapproximated with a No. 1 Vicryl at multiple locations. The capsule was finally closed with a No. 2 Stratafix, barbed suture. Deep tissues were then reapproximated with 0 Vicryl and 2-0 Vicryl. The skin was closed with a running 3-0 Monocryl in a subcuticular fashion. This was reinforced with skin glue. A Mepilex silver dressing was applied along with a [id number] AUDELIA wrap. A CryoCuff was applied. Danie was transferred to the hospital bed without difficulty an suffering no apparent complication. Danie has a good prognosis. Physical therapy will start today and without restrictions, weight-bearing as tolerated. Aspirin 81mg BID will be used for DVT prophylaxis. Date of Procedure: 04/27/25
[2025-04-27] MEDS: fentaNYL 100 MCG/2 ML VIAL IVP ×2 (10:32→10:39)
--- NOTE | 2025-04-27 10:58 | W.ANESPOSTOP ---
Postoperative Evaluation Date, Time and Location Date Performed: 04/27/25 Time Performed: 10:58 Patient Location: PACU Vital Signs Most Recent Imported Vital Signs: Most Recent Vital Signs Temp Pulse Resp BP Pulse Ox 36.4 C L 69 16 118/85 98 04/27/25 10:51 04/27/25 10:50 04/27/25 10:50 04/27/25 10:46 04/27/25 10:50 Pain Score Most Recent Pain Score: Most Recent Pain Score Pain Level 8 04/27/25 10:36 Assessment Mental Status: Arousable with meaningful communication Airway and Respiratory Function: Patent airway with normal (patient baseline) respiratory exam Cardiovascular Function: Hemodynamically Stable Hydration Status: Adequately Hydrated Nausea & Vomiting: No Nausea or Vomiting Pain: Other Peripheral Nerve Block: Regional nerve block not resolved at time of post operative discharge Postoperative Comments:: Knee feels decent, but having significant pain in bladder/penis. He feels that he must have a stone. Scanned with US, unable to appreciate stone in bladder, but didn't sweep all the way inferior due to discomfort. Also, a decent amount of urine present, may just need to be stright cathed, but he is not willing for that to happen yet.
[2025-04-27] MEDS: HYDROmorphone 2 MG/ML SYR IVP ×2 (11:06→11:18)
[2025-04-27] MEDS: Tranexamic Acid 650 MG TAB 1300 MG PO (11:48)
[2025-04-27] MEDS: oxyCODONE 5 MG TAB PO (11:48)
--- NOTE | 2025-04-27 12:38 | IN_ITS ---
PT Notes Visit Reasons: R TKR Total Knee Replacement Discharge Instructions Walk every day as much as pain allows. Elevate Right leg when sitting. :jennifer stocking during daytime for 2 weeks. CONTACT A CAREGIVER IF: * You have a fever. * You are not able to do the exercises that you have been told to do. * You have trouble stretching your leg and moving or bending your knee. * Your wound begins to drain fluid again after it has stopped. * You have trouble sitting or getting up from a chair, walking, or climbing stairs. * You have back pain or lower leg pain when you flex (bend) your foot upwards. * SEEK CARE IMMEDIATELY IF: * You are unable to walk or move your leg, or your knee feels very stiff. * You fell and hurt your knee. * You have fainted (passed out). * Your leg feels warm, tender, and painful. It may look swollen and red. * You have chest pain or trouble breathing that is getting worse over time. * You suddenly feel lightheaded and have trouble breathing. * You have new and sudden chest pain. You may have more pain when you take deep breaths or cough. You may cough up blood. * * * Physical Therapy Day Surgery Initial Evaluation Date: 04/27/25 Referring Doctor:Deni knapp PT Orders: PT CONSULT:status post ortho surgery Precautions: standard, WBAT Patient Profile/Admitting Diagnosis: s/p Right TKA post op 04/27/25[]Pt is a pleasant 49 yo male s/p TKA right post op same day. 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 Mental Status: []A and Ox4 Pain: []0/10 ROM: Right Upper Extremity: WNL Left Upper Extremity: WNL Right Lower Extremity: AROM 0-90, ankle tight but WNL Left Lower Extremity: WNL Strength: Right Upper Extremity: WNL Left Upper Extremity: WNL Right Lower Extremity: ext 3/5 flex 3/5 others NT Left Lower Extremity: WNL Sensation: decreased at right knee Bed Mobility/Transfers: [] Supine to sitindep Sit to stand indep Stand to sit indep Bed to chair indep Gait: Amb with RW 100' with SBA progress to indep slow pace, heel toe gait. PT stairs leading with left up and right down using left rail only to simulate home. Balance: Static Sitting: normal Dynamic Sitting: normal Static Standing: good Dynamic Standing: good Special Tests: Mobility Limitations Standardized Measure [facility] AM-PAC 6 clicks Basic Mobility Inpatient Short Form: [] Raw Score: 24 CMS Score:0% Informed Consent/Education: Patient instructed in purpose of PT consult. Packet containing TKR exercise protocol has been given to patient. Education and training on initial set of exercises that can be done at home have been completed with patient. Assessment: Patient presents with clinical signs and symptoms consistent with current/admitting diagnoses that have resulted to mobility limitations, gait instability, generalized weakness, and impairment of motor control as demonstrated by the following impairment level findings: 1. Decreased strength to left knee major muscle groups 2. Impaired standing balance 3. Limitation of joint range of motion in left knee Impairments are contributing to the following functional limitations: 1. Inability to safely ambulate without assistive device 2. Increase completion time for mobility ADL performance 3. Increased fall risk Patient is assessed as a low complexity based on the following: History: 49-year-old male with impairment level findings, functional limitations, and past medical history as indicated above Examination: Demonstrable impairment in strength, balance, and mobility level with underlying impairments and functional limitations as documented above Presentation: evolving Decision Making: low Goals: N/A. PT evaluation and 1-2 treatment sessions only for functional mobility training using recommended AD and for HEP instruction. Therapeutic procedures ([id number][1]): Instruction in therapeutic exercises to develop strength and endurance, range of motion and flexibility. HEP instruction and review: Provided skilled instruction in proper exercise performance: Provided skilled manual cues to facilitate proper muscle recruitment and/or movement pattern: Pt. education of HEP, transfers, and ambulation. Plan of Care/Treatment Plan: N/A. PT evaluation and 1-2 treatment session only for functional mobility training using recommended AD and for HEP instruction. DISCHARGE RECOMMENDATIONS: Home with outpatient PT in 2 weeks TREATMENT CODE/TIME: [id number] [id number] 20' 12:45-1:05 Thank you for the opportunity to participate in the care of this patient. Please sign an return this page within 30 days if you agree with the above POC. Thank you! Physician Signature Date [facility]
== END 2025-04-27 13:38 | disposition home or self-care (01) ==
PROVIDERS: PCP Registered Nurse; Visit Provider Student in an Organized Health Care Education/Training Program
PROC: (CPT 27447; principal; 2025-04-27 07:30)
DX: M17.11 Unilateral primary osteoarthritis, right knee (principal); G89.18 Other acute postprocedural pain
CPT/HCPCS: 27447; 20985; 64447; 97110; 97161; C1776; J0166; J0665; J0666; J0690; J1100; J1171; J1885; J2003; J2250; J2371; J2401; J2405; J2704; J2795; J3010

== ENCOUNTER 2025-05-09 12:01 | Outpatient (CLI) | payer BC, SELFPAY ==
--- NOTE | 2025-05-09 10:45 | DI.RAD_ITS ---
Exam(s) XR KNEE RT 1V XR STANDING ALIGNMENT EXAM: XR STANDING ALIGNMENT CLINICAL HISTORY: 1ST POST OP R TKA. TECHNIQUE: 2D digital imaging was performed. Five images were obtained. COMPARISON: CR XR Knee 3 Views Right from 11/18/2023 CR XR STANDING ALIGNMENT from 04/18/2025 FINDINGS: BONES: There is again seen prominence of the left acetabular roof which can be seen with SHELDON. Since the prior examination, the patient has undergone a right total knee arthroplasty. The orthopedic hardware is in good position. In the left knee, there is marked asymmetric narrowing of the femoral tibial joints with osteophytes present consistent with osteoarthritis. The ankles are well maintained.There is no significant leg length discrepancy. SOFT TISSUE: Normal. IMPRESSION: 1. Interval placement of a right total knee arthroplasty. 2. Marked osteoarthritis of the left knee. DATA REPOSITORY: RADIATION DOSE DELIVERED:
== END 2025-05-09 12:02 | disposition home or self-care (01) ==
LOC: DIORS 12:01
PROVIDERS: PCP Registered Nurse; Visit Provider Student in an Organized Health Care Education/Training Program
DX: Z96.651 Presence of right artificial knee joint (principal); Z47.1 Aftercare following joint replacement surgery
CPT/HCPCS: 73560; 77073